=== PATIENT | female | born 1980 | race African-American/Black ===

== ENCOUNTER 2017-09-11 18:45 | Emergency (ER) | payer MEDICAID ==
[~2017-09-11] VITALS: Ht 175.3 cm; Wt 88.5 kg
[2017-09-11 21:52] LABS: CLARITY URINE CLOUDY (CLEAR); COLOR URINE YELLOW (YELLOW); KETONES URINE 3+ (NEGATIVE); LEUKOCYTE ESTERASE URINE NEGATIVE (NEGATIVE); NITRITE URINE NEGATIVE (NEGATIVE); OCCULT BLOOD URINE 3+ (NEGATIVE); PH URINE 5.5 (4.5-8.0); PROTEIN URINE TRACE (NEGATIVE); SPECIFIC GRAVITY URINE 1.033 (1.005-1.030); UROBILINOGEN URINE 0.2 E.U./dL (0.2-1.0)
[2017-09-11] MEDS ORDERED: ONDANSETRON HCL 4MG/2ML VIAL IV ONE (23:15)
[2017-09-11] MEDS ORDERED: KETOROLAC 30MG/ML VIAL IV ONE (23:15)
[2017-09-11] MEDS ORDERED: SODIUM CHLORIDE 0.9% 100 ML IV ONE (23:15)
[2017-09-11 23:36] LABS: BASOPHILS % 0.8 % (0.0-2.0); EOSINOPHILS % 0.3 % (0.0-5.0); HEMATOCRIT. 36.5 % (36.0-48.0); HEMOGLOBIN. 12.5 g/dL (12.0-16.0); MEAN CORPUSCULAR VOLUME 87.6 fL (81.0-99.0); MEAN PLATELET VOLUME 7.5 fl (7.4-10.4); MONOCYTES % 5.8 % (2.0-8.0); NEUTROPHILS % 71.1 % (40.0-76.0); PLATELET 334 x1000/uL (130-400); RED BLOOD CELL COUNT 4.17 mill/uL (4.2-5.4); RED CELL DISTRIBUTION WIDTH 13.3 % (11.6-14.6)
[2017-09-11 23:43] LABS: CHLORIDE 104 mEq/L (98-107)
[2017-09-12] MEDS ORDERED: HYDROCODONE/ACETAMINOPHEN 5/325MG TABLET PO ONE (02:15)
[2017-09-12] MEDS ORDERED: ONDANSETRON HCL 4MG/2ML VIAL IV ONE (07:30)
[2017-09-12 08:41] VITALS: BP 121/49
== END 2017-09-12 08:42 | disposition home or self-care (01) ==
LOC: ER 19:45
DX: N83.209 Unspecified ovarian cyst, unspecified side (principal); E27.8 Other specified disorders of adrenal gland; R31.9 Hematuria, unspecified
CPT/HCPCS: 36415; 74176; 76830; 76856; 80053; 81003; 81025; 85025; 96374; 96375; 96376; 99285; J1885; J2405; Z7610; J7050